=== PATIENT | female | born 2000 | race Caucasian/White ===

== ENCOUNTER 2020-04-12 18:10 | Emergency (ER) | payer SELFPAY ==
[2020-04-12] MEDS ORDERED: LIDOCAINE 1% MPF 5 ML VIAL ONE (23:13)
[2020-04-12] MEDS ORDERED: TETANUS & DIPHTHERIA TOX,ADULT 0.5 ML VIAL ONE (23:13)
--- NOTE | 2020-04-12 23:45 | EDPHYS ---
Physician Documentation [facility] Name: Selena Simpson Age: 19 yrs Sex: Female : 2000 Arrival Date: 04/12/2020 Time: 18:12 Bed 20 Private MD: ED Physician Perfecto Michaud HPI: 04/12 22:49 This 19 yrs old Female presents to ER via Ambulatory with complaints of pm1 Laceration To Foot. 22:49 The patient has a laceration related to: dropped the wine bottle on her left foot pm1 resulting in laceration to dorsal aspect. The laceration(s) is(are) located on the dorsum of left foot. Onset: The symptoms/episode began/occurred today. Associated signs and symptoms: Pertinent negatives: suspected foreign body. The patient has not experienced similar symptoms in the past. The patient has not recently seen a physician. 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 - Social history:: Smoking status: Patient denies any tobacco usage or history of. ROS: 22:49 Constitutional: Negative for fever, chills, and weight loss. pm1 22:49 Neuro: Negative for headache, weakness, numbness, tingling, and seizure. 22:49 MS/extremity: Positive for laceration, pain, of the dorsum of left foot. 22:49 Skin: Positive for laceration(s), of the dorsum of left foot. Exam: 22:49 Constitutional: This is a well developed, well nourished patient who is awake, alert, pm1 and in no acute distress. Head/Face: Normocephalic, atraumatic. 22:49 Cardiovascular: Exam negative for acute changes, Rate: normal, Rhythm: regular, Pulses: no pulse deficits are appreciated. 22:49 Respiratory: Exam negative for acute changes, respiratory distress, shortness of breath. 22:49 Skin: Appearance: normal except for affected area, injury, laceration(s), that can be described as clean, no foreign body, irregular, with mild bleeding. Vital Signs: 19:13 BP 134 / 84; Pulse 77; Resp 16; Temp 97.4; Pulse Ox 99% ; Weight 74.84 kg; Height 5 ft. ll1 4 in. (162.56 cm); Pain 2/10; 23:04 BP 128 / 81; Pulse 65; Resp 16 S; Pulse Ox 99% on R/A; ca1 23:37 BP 125 / 88; Pulse 71; Resp 16 S; Pulse Ox 96% on R/A; ca1 19:13 Body Mass Index 28.32 (74.84 kg, 162.56 cm) ll1 Laceration: 23:42 Wound Repair of 2.5cm ( 1.0in ) subcutaneous laceration to dorsum of left foot. pm1 Irregularly shaped.. Distal neuro/vascular/tendon intact. Anesthesia: Local anesthetic administered with 3 mls of 1% lidocaine. Wound prep: Extensive cleansing with hibiclenz by me, Wound irrigation with saline by me, Wound explored extensively, Copious irrigation. Skin closed with 5 4-0 Prolene using simple sutures and sterile technique. Dressed with Neosporin, 4x4's. Patient tolerated well. MDM: 22:38 Patient medically screened. pm1 23:42 Data reviewed: vital signs. Counseling: I had a detailed discussion with the patient pm1 and/or guardian regarding: the historical points, exam findings, and any diagnostic results supporting the discharge/admit diagnosis, radiology results, the need for outpatient follow up, suture removal in 10-14 days, to return to the emergency department if symptoms worsen or persist or if there are any questions or concerns that arise at home. 04/12 22:48 Order name: Foot Left 3 View XRAY pm1 04/12 22:48 Order name: Prolene, Sutures; Complete Time: 23:00 pm1 04/12 22:48 Order name: Dressing - Wound; Complete Time: 23:00 pm1 04/12 22:48 Order name: Gloves, Sterile; Complete Time: 23:00 pm1 04/12 22:48 Order name: Setup Suture Tray; Complete Time: 23:00 pm1 Administered Medications: 23:00 Drug: Tetanus-Diphtheria Toxoid Adult 0.5 ml {Will Call Order Clerk: [employer] [place]. Exp: ca1 08/03/2021. Lot #: [id number]. } Route: IM; Site: right deltoid; 23:45 Follow up: Response: No adverse reaction ca1 23:28 Drug: Lidocaine (1 %) 5 ml {Note: Administered by Provider.} Volume: 5 ml; Route: wh Infiltration; Disposition: 04/13 05:32 Co-signature as Attending Physician, Perfecto Michaud MD. mh7 Disposition: 04/12/20 23:44 Discharged to Home. Impression: Laceration without foreign body, left foot. - Condition is Stable. - Discharge Instructions: Laceration Care, Adult. - Prescriptions for Keflex 500 mg Oral Capsule - take 1 capsule by ORAL route every 12 hours for 10 days; 20 capsule. - Medication Reconciliation Form, Thank You Letter, Antibiotic Education, Prescription Opioid Use, Work release form, Family Work Release form. - Follow up: Emergency Department; When: As needed; Reason: Worsening of condition. Follow up: Private Physician; When: 10 - 14 days; Reason: Recheck today's complaints, Continuance of care, Re-evaluation by your physician. - Problem is new. - Symptoms have improved. Signatures: Dispatcher [employer] EDMS Zia Gallagher, CLARA NO BAKE MOLDER pm1 Erich Colon Noemi Brock RN RN ca1 Darinel Flores RN RN 1 Perfecto Michaud MD MD 7 Corrections: (The following items were deleted from the chart) 04/12 23:56 23:44 04/12/2020 23:44 Discharged to Home. Impression: Laceration without foreign body, ca1 left foot. Condition is Stable. Forms are Medication Reconciliation Form, Thank You Letter, Antibiotic Education, Prescription Opioid Use. Follow up: Emergency Department; When: As needed; Reason: Worsening of condition. Follow up: Private Physician; When: 10 - 14 days; Reason: Recheck today's complaints, Continuance of care, Re-evaluation by your physician. Problem is new. Symptoms have improved. pm1
--- NOTE | 2020-04-12 23:45 | ER ---
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 ll1 Bleeding controlled. Gait steady. Coronavirus screen: Client denies travel out of the [place] in the last 14 days. congestion, cough unrelated to allergies, diarrhea, headache, muscle pain, nausea, sore throat, vomiting. Client presents with at least one sign or symptom that may indicate coronavirus-19. Standard/surgical mask placed on the client. The client indicates previous COVID test results are pending. Ebola Screen: Patient denies travel to an Ebola-affected area in the 21 days before illness onset. Complicating Factors: Glass or an other foreign body is present in the wound. Initial Sepsis Screen: Does the patient meet any 2 criteria? No. Patient's initial sepsis screen is negative. Does the patient have a suspected source of infection? Yes: Skin breakdown/wound. Risk Assessment: Do you want to hurt yourself or someone else? Patient reports no desire to harm self or others. Onset of symptoms was April 12, 2020. 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 - Social history:: Smoking status: Patient denies any tobacco usage or history of. Screenin:40 Abuse screen: Denies threats or abuse. Denies injuries from another. Nutritional ca1 screening: No deficits noted. Tuberculosis screening: No symptoms or risk factors identified. Fall Risk None identified. Assessment: 22:40 General: Appears in no apparent distress. comfortable, Behavior is calm, cooperative, ca1 appropriate for age. Pain: Complains of pain in dorsum of left foot Pain currently is 5 out of 10 on a pain scale. Neuro: Level of Consciousness is awake, alert, obeys commands, Oriented to person, place, time, situation. Derm: Skin is healthy with good turgor, Skin is pink, warm \T\ dry. Musculoskeletal: Circulation, motion, and sensation intact. Capillary refill < 3 seconds. Injury Description: Laceration sustained to dorsum of left foot is jagged, 2.6 to 7.5 cm long, not bleeding, was sustained 30-60 minutes ago. is bleeding a small amount. 23:37 Reassessment: Patient appears in no apparent distress at this time. Patient is alert, ca1 oriented x 3, equal unlabored respirations, skin warm/dry/pink. Vital Signs: 19:13 BP 134 / 84; Pulse 77; Resp 16; Temp 97.4; Pulse Ox 99% ; Weight 74.84 kg; Height 5 ft. ll1 4 in. (162.56 cm); Pain 2/10; 23:04 BP 128 / 81; Pulse 65; Resp 16 S; Pulse Ox 99% on R/A; ca1 23:37 BP 125 / 88; Pulse 71; Resp 16 S; Pulse Ox 96% on R/A; ca1 19:13 Body Mass Index 28.32 (74.84 kg, 162.56 cm) ll1 ED Course: 18:12 Patient arrived in ED. ag5 19:12 Arm band placed on. ll1 19:14 Triage completed. ll1 22:35 Perfecto Michaud MD is Attending Physician. mh7 22:37 Zia Gallagher NP is PHCP. pm1 22:40 Patient has correct armband on for positive identification. Bed in low position. Call ca1 light in reach. Side rails up X 1. Pulse ox on. NIBP on. Warm blanket given. 22:42 Noemi Brock, KATIA is Primary Nurse. ca1 23:44 Patient did not have IV access during this emergency room visit. ca1 23:44 Assist provider with laceration repair on dorsum of left foot that was between 2.6 to ca1 7.5 cm using sutures. Set up tray. Performed by Zia Gallagher REAM CUTTER Dressed with 4X4s, Kerlix, Patient tolerated well. 23:49 Foot Left 3 View XRAY In Process Unspecified. EDMS Administered Medications: 23:00 Drug: Tetanus-Diphtheria Toxoid Adult 0.5 ml {Banking Center Manager: [employer]. Exp: ca1 08/03/2021. Lot #: [id number]. } Route: IM; Site: right deltoid; 23:45 Follow up: Response: No adverse reaction ca1 23:28 Drug: Lidocaine (1 %) 5 ml {Note: Administered by Provider.} Volume: 5 ml; Route: wh Infiltration; Outcome: 23:44 Discharge ordered by . pm1 23:55 Discharged to home ambulatory, with family. ca1 23:55 Condition: stable 23:55 Discharge instructions given to patient, Instructed on discharge instructions, follow up and referral plans. medication usage, wound care, Demonstrated understanding of instructions, follow-up care, medications, wound care, Prescriptions given X 1. 23:56 Patient left the ED. ca1 Signatures: Dispatcher [employer] EDMS Zia Gallagher, REAM CUTTER REAM CUTTER pm1 Erich Colon Cheryl, RN RN ca1 Ashley Oden 5 Darinel Flores RN RN 1 Perfecto Michaud MD MD 7
[2020-04-13 00:19] VITALS: BP 125/88; O2SAT 96
--- NOTE | 2020-04-13 12:40 | RAD REPORT ---
EXAM DESCRIPTION: RAD - Foot Left 3 View - 04/12/2020 11:50 pm CLINICAL HISTORY: laceration Pain and swelling COMPARISON: Chest For Pe Angio dated 02/23/2020No comparisons FINDINGS: No fracture, dislocation or radiopaque foreign body.
== END 2020-04-12 23:56 | disposition home or self-care (01) ==
LOC: ER 18:10
PROC: 0JQR0ZZ Repair Left Foot Subcutaneous Tissue and Fascia, Open Approach (ICD-10-PCS; principal; 2020-04-12)
DX: S91.312A Laceration without foreign body, left foot, initial encounter (principal); W25.XXXA Contact with sharp glass, initial encounter; Y93.9 Activity, unspecified; Y92.9 Unspecified place or not applicable; Z23 Encounter for immunization
CPT/HCPCS: 90471; 90714; 99284

== ENCOUNTER 2020-04-25 | Emergency (ER) | payer SELFPAY ==
--- NOTE | 2020-04-25 13:24 | EDPHYS ---
Physician Documentation [facility] Name: Selena Simpson Age: 19 yrs Sex: Female : 2000 Arrival Date: 04/25/2020 Time: 12:34 Bed 30 Private MD: ED Physician Sander Aguirre HPI: 04/25 13:33 This 19 yrs old Female presents to ER via Ambulatory with complaints of kb Suture Removal. 13:33 The patient has sutures on the dorsum of left foot. Previous treatment: The patient was kb initially treated on April 12, 2020, the care was rendered at [facility], Treatment type: The patient's original treatment included sutures. Sutures/maxx progress: The patient has no c/o's. The wound is well-healing with no redness, swelling, discharge, or dehiscence reported. The patient has not experienced similar symptoms in the past. The patient has been recently seen at the [facility] Emergency Department. 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 - Social history:: Smoking status: Patient denies any tobacco usage or history of. ROS: 13:32 Constitutional: Negative for fever, chills, and weight loss, Cardiovascular: Negative kb for chest pain, palpitations, and edema, Respiratory: Negative for shortness of breath, cough, wheezing, and pleuritic chest pain, Abdomen/GI: Negative for abdominal pain, nausea, vomiting, diarrhea, and constipation, MS/Extremity: Negative for injury and deformity, Neuro: Negative for headache, weakness, numbness, tingling, and seizure. 13:32 Skin: Positive for of the dorsum of left foot, sutures in place. Exam: 13:32 Constitutional: This is a well developed, well nourished patient who is awake, alert, kb and in no acute distress. Head/Face: Normocephalic, atraumatic. Chest/axilla: Normal chest wall appearance and motion. Nontender with no deformity. No lesions are appreciated. Cardiovascular: Regular rate and rhythm with a normal S1 and S2. No gallops, murmurs, or rubs. Normal PMI, no JVD. No pulse deficits. Respiratory: Lungs have equal breath sounds bilaterally, clear to auscultation and percussion. No rales, rhonchi or wheezes noted. No increased work of breathing, no retractions or nasal flaring. Abdomen/GI: Soft, non-tender, with normal bowel sounds. No distension or tympany. No guarding or rebound. No evidence of tenderness throughout. MS/ Extremity: Pulses equal, no cyanosis. Neurovascular intact. Full, normal range of motion. Neuro: Awake and alert, GCS 15, oriented to person, place, time, and situation. Cranial nerves II-XII grossly intact. Motor strength 5/5 in all extremities. Sensory grossly intact. Cerebellar exam normal. Normal gait. 13:32 Skin: Wound recheck: Suture laceration closure: the wound is healing well, the edges are well approximated, no evidence of dehiscence, no drainage, no erythema, no swelling. Vital Signs: 12:53 BP 148 / 87; Pulse 86; Resp 18; Temp 98.4; Pulse Ox 99% on R/A; Weight 72.57 kg; Height em 5 ft. 3 in. (160.02 cm); Pain 0/10; 12:53 Body Mass Index 28.34 (72.57 kg, 160.02 cm) em Procedures: 13:32 Suture/Staple removal: Removed 5 sutures, from dorsum of left foot, site appears well kb healed, dressed with steri-strips. Patient tolerated well. MDM: 13:20 Patient medically screened. kb 13:30 Data reviewed: vital signs, nurses notes. Data interpreted: Pulse oximetry: on room air kb is 99 %. Interpretation: normal. Counseling: I had a detailed discussion with the patient and/or guardian regarding: the historical points, exam findings, and any diagnostic results supporting the discharge/admit diagnosis, the need for outpatient follow up, a family practitioner, to return to the emergency department if symptoms worsen or persist or if there are any questions or concerns that arise at home. Administered Medications: No medications were administered Disposition: 15:58 Co-signature as Attending Physician, Sander Aguirre MD I agree with the assessment and kdr plan of care. Disposition: 04/25/20 13:24 Discharged to Home. Impression: Encounter for removal of sutures. - Condition is Stable. - Discharge Instructions: Suture Removal, Care After. - Medication Reconciliation Form, Thank You Letter, Antibiotic Education, Prescription Opioid Use form. - Follow up: Emergency Department; When: As needed; Reason: Worsening of condition. Follow up: Private Physician; When: 2 - 3 days; Reason: Recheck today's complaints, Continuance of care, Re-evaluation by your physician. Signatures: Thania Carpenter, HAYDEN-C COMMUNITY ADMINISTRATOR-CkSander Bustillo MD MD kdr Stewart Arshad RN RN em Corrections: (The following items were deleted from the chart) 13:28 13:24 04/25/2020 13:24 Discharged to Home. Impression: Encounter for removal of kb sutures. Condition is Stable. Forms are Medication Reconciliation Form, Thank You Letter, Antibiotic Education, Prescription Opioid Use. Follow up: Emergency Department; When: As needed; Reason: Worsening of condition. Follow up: Private Physician; When: 2 - 3 days; Reason: Recheck today's complaints, Continuance of care, Re-evaluation by your physician. kb
--- NOTE | 2020-04-25 13:24 | ER ---
Nurse's Notes [facility] Name: Selena Simpson Age: 19 yrs Sex: Female : 2000 Arrival Date: 04/25/2020 Time: 12:34 Bed 30 Private MD: Diagnosis: Encounter for removal of sutures Presentation: 04/25 12:53 Chief complaint: Patient states: sutures removed from incident on . em Coronavirus screen: Client denies travel out of the [place] in the last 14 days. Ebola Screen: Patient negative for fever greater than or equal to 101.5 degrees Fahrenheit, and additional compatible Ebola Virus Disease symptoms Patient denies exposure to infectious person. Patient denies travel to an Ebola-affected area in the 21 days before illness onset. No symptoms or risks identified at this time. Initial Sepsis Screen: Does the patient meet any 2 criteria? No. Patient's initial sepsis screen is negative. Does the patient have a suspected source of infection? No. Patient's initial sepsis screen is negative. Risk Assessment: Do you want to hurt yourself or someone else? Patient reports no desire to harm self or others. Onset of symptoms was April 12, 2020. 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 - Social history:: Smoking status: Patient denies any tobacco usage or history of. Screenin:00 Abuse screen: Denies threats or abuse. Nutritional screening: No deficits noted. em Tuberculosis screening: No symptoms or risk factors identified. Fall Risk None identified. Assessment: 13:00 General: Appears in no apparent distress. comfortable, Behavior is calm, cooperative, em appropriate for age. Pain: Denies pain. Neuro: Level of Consciousness is awake, alert, obeys commands, Oriented to person, place, time, situation, Appropriate for age. Cardiovascular: Capillary refill < 3 seconds Patient's skin is warm and dry. Respiratory: Airway is patent Respiratory effort is even, unlabored, Respiratory pattern is regular, symmetrical. GI: Abdomen is flat. Derm: Skin is intact, is healthy with good turgor, Skin is pink, warm \T\ dry. Wound noted dorsum of left foot Wound is 5 sutures to top of left foot. Musculoskeletal: Range of motion: intact in all extremities. Vital Signs: 12:53 BP 148 / 87; Pulse 86; Resp 18; Temp 98.4; Pulse Ox 99% on R/A; Weight 72.57 kg; Height em 5 ft. 3 in. (160.02 cm); Pain 0/10; 12:53 Body Mass Index 28.34 (72.57 kg, 160.02 cm) em ED Course: 12:34 Patient arrived in ED. ds1 12:54 Triage completed. em 12:54 Arm band placed on. em 13:00 Patient has correct armband on for positive identification. Bed in low position. Side em rails up X2. Adult w/ patient. 13:00 No provider procedures requiring assistance completed. Patient did not have IV access em during this emergency room visit. 13:07 Thania Carpenter FNP-C [facility]. kb 13:07 Sander Aguirre MD is Attending Physician. kb Administered Medications: No medications were administered Outcome: 13:24 Discharge ordered by . kb 13:28 Patient left the ED. kb 14:11 Discharged to home ambulatory. em 14:11 Condition: good 14:11 Discharge instructions given to patient, Instructed on discharge instructions, follow up and referral plans. Demonstrated understanding of instructions, follow-up care. Signatures: Thania Carpenter FNP-C FNP-Ckb Munoz, Edgar, RN RN Niki Alvarez ds1
== END 2020-04-25 13:28 | disposition home or self-care (01) ==
DX: Z48.02 Encounter for removal of sutures (principal)
CPT/HCPCS: 99281